=== PATIENT | female | born 1945 | race Caucasian/White ===

== ENCOUNTER 2016-11-07 12:45 | Day surgery (SDC) | payer MEDICARE, BC ==
[~2016-11-07 12:45] MED LIST: ADVA250A INH; THEO300T31 PO; VENTAER INH; [UNRECOGNIZED DRUG - CODE] TD
[2016-11-07 13:32] VITALS: BP 156/72; PULSE 77; RESP 16; TEMP 97; O2SAT 94
--- NOTE | 2016-11-07 16:05 | RADRPT ---
EXAM DATE/TIME: 11/07/2016 13:33 [facility] COMPARISON: No previous studies available for comparison. INDICATIONS : Bilateral neck lymphadenopathy. MEDICAL HISTORY : Carcinoma, thyroid. Diabetes mellitus type 2. Lymphadenopathy. Otalgia. SURGICAL HISTORY : Thyroidectomy. Colonoscopy. Flexible sigmoidoscopy. ENCOUNTER: Initial ACUITY: > 1 year PAIN SCORE: 3/10 LOCATION: Bilateral neck AREA EVALUATED: Bilateral neck. FINDINGS: Multiple small lymph nodes are present in the right neck inaccessible by ultrasound giv en the location surrounding carotid and jugular. Given the history of papillary carcinoma of the thyroid, radioactive iodine study may be of benefit. CONCLUSION: Multiple small lymph nodes, unable to access percutaneously. Doni Ross MD FACR on November 07, 2016 at 16:00 Board Certified Radiologist. This report was verified electronically.
== END 2016-11-07 16:00 | disposition home or self-care (01) ==
LOC: HRAD 12:45 → HRIP 12:49 → HRAD 16:00
PROVIDERS: ATTEND Otolaryngology Otolaryngology/Facial Plastic Surgery
DX: R59.0 Localized enlarged lymph nodes (principal); E11.9 Type 2 diabetes mellitus without complications
CPT/HCPCS: 76999

== ENCOUNTER → 2018-01-11 | Outpatient (CLI) | payer MEDICARE, BC ==
--- NOTE | 2018-01-11 10:14 | RADRPT ---
EXAM DATE/TIME: 01/11/2018 10:09 [facility] COMPARISON: No previous studies available for comparison. INDICATIONS : Cough. MEDICAL HISTORY : Carcinoma, thyroid. Diabetes mellitus type 2. Lymphadenopathy SURGICAL HISTORY : Thyroidectomy. ENCOUNTER: Initial ACUITY: 1 day PAIN SCORE: 0/10 LOCATION: Bilateral chest FINDINGS: PA and lateral views of the chest demonstrate the lungs to be symmetrically aerated without evidence of mass, infiltrate or effusion. The cardiomediastinal contours are unremarkable. Osseous structure s are intact with minimal degenerative spurring of the dorsal spine. CONCLUSION: No acute cardiopulmonary process. Lungs are clear. Roland Sears MD on January 11, 2018 at 10:12 Board Certified Radiologist. This report was verified electronically.
[2018-01-11 10:40] LABS: HEMATOCRIT 42.4 % (35.0-46.0); HEMOGLOBIN 14.2 GM/DL (11.6-15.3); MEAN CELL VOLUME 85.9 FL (80.0-100.0); MEAN CORPUSCULAR HEMOGLOBIN 28.8 PG (27.0-34.0); MEAN CORPUSCULAR HGB CONC 33.5 % (32.0-36.0); MEAN PLATELET VOLUME 8.4 FL (7.0-11.0); PLATELET COUNT 229 TH/MM3 (150-450); RED BLOOD COUNT 4.94 MIL/MM3 (4.00-5.30); RED CELL DISTRIBUTION WIDTH 14.4 % (11.6-17.2); WHITE BLOOD COUNT 6.5 TH/MM3 (4.0-11.0)
[2018-01-11 11:05] LABS: ALBUMIN 3.9 GM/DL (3.4-5.0); AST (GOT) 16 U/L (15-37); BLOOD UREA NITROGEN 15 MG/DL (7-18); CALCIUM 8.9 MG/DL (8.5-10.1); CHLORIDE 106 MEQ/L (98-107); CREATININE 0.84 MG/DL (0.50-1.00); GLOMERULAR FILTRATION RATE 67 ML/MIN (>89); GLUCOSE,FASTING 112 MG/DL (74-99); SODIUM (NA) 140 MEQ/L (136-145); THEOPHYLLINE 4.4 MCG/ML (10.0-20.0)
[2018-01-11 11:08] LABS: ALKALINE PHOSPHATASE 71 U/L (45-117); ALT (GPT) 23 U/L (10-53); TOTAL PROTEIN 7.5 GM/DL (6.4-8.2)
== END ==
LOC: HRSP 08:51
DX: J44.9 Chronic obstructive pulmonary disease, unspecified (principal); R06.00 Dyspnea, unspecified; E11.9 Type 2 diabetes mellitus without complications
CPT/HCPCS: 36415; 71046; 80053; 80198; 85027; 94060; 94726; 94729